=== PATIENT | male | born 1950 | race Two or more races ===

== ENCOUNTER 2017-09-26 04:42 | Day surgery (SDC) | payer OTHER ==
[~2017-09-26] VITALS: Ht 177.8 cm; Wt 68.0 kg
[2017-09-26] MEDS ORDERED: FINASTERIDE1 MG (05:03)
[2017-09-26] MEDS ORDERED: STIOLTO RESPIMAT4 GM (05:03)
== END 2017-09-27 10:00 | disposition home or self-care (01) ==
LOC: ER 04:42 → SEC-K 05:35 → ER 05:35 → CIR.AMB 06:00 → O/R 06:00 → ER 06:00 → O/R 10:47 → SEC-K 10:47 → EDSTATUS 13:45 → SEC-K 14:39 → O/R 14:39 → SURH 14:39 → CIR.AMB 09-27 10:00 → SURH 09-27 10:42 → SEC-K 09-27 10:42 → O/R 09-27 10:42
DX: C67.0 Malignant neoplasm of trigone of bladder (principal); R31.0 Gross hematuria

== ENCOUNTER 2018-05-09 18:33 | Outpatient (CLI) | payer OTHER ==
[~2018-05-09 18:33] MED LIST: FINASTERIDE1 MG; STIOLTO RESPIMAT4 GM
== END 2018-05-09 22:00 | disposition home or self-care (01) ==
LOC: LAB 18:33
DX: N30.00 Acute cystitis without hematuria (principal); R82.79 Other abnormal findings on microbiological examination of urine

== ENCOUNTER 2018-07-21 05:20 | Day surgery (SDC) | payer OTHER ==
[~2018-07-21] VITALS: Ht 177.8 cm; Wt 61.2 kg
[~2018-07-21 05:20] MED LIST changes: +TAMS0.4C PO
== END 2018-07-21 13:00 | disposition home or self-care (01) ==
LOC: O/R 05:20 → CIR.AMB 05:20 → SURH 05:20 → EDSTATUS 08:00 → O/R 10:31 → SURH 10:31 → O/R 10:45 → SURH 10:45 → O/R 10:45 → CIR.AMB 13:00
DX: C67.0 Malignant neoplasm of trigone of bladder (principal); N13.1 Hydronephrosis with ureteral stricture, not elsewhere classified; R31.0 Gross hematuria

== ENCOUNTER 2019-01-12 07:00 | Day surgery (SDC) | payer OTHER | END 2019-01-12 17:35 | disposition home or self-care (01) | LOC: CIR.AMB 07:00 | DX: C67.4 Malignant neoplasm of posterior wall of bladder (principal); N13.5 Crossing vessel and stricture of ureter without hydronephrosis ==